=== PATIENT | female | born 1940 | race Caucasian/White ===

== ENCOUNTER → 2023-09-29 09:00 | Outpatient (REF) | payer MEDICARE, OTHER, SELFPAY | LOC: DHSLP 09:00 | PROVIDERS: ATTENDING PHYSICIAN Nurse Practitioner Family; FAMILY PHYSICIAN Family Medicine | DX: G47.33 Obstructive sleep apnea (adult) (pediatric) (principal); R40.0 Somnolence; R06.83 Snoring | CPT/HCPCS: 95800 ==

== ENCOUNTER → 2024-06-13 06:26 | Day surgery (SDC) | payer MEDICARE, OTHER, SELFPAY | LOC: GI 06:26 | PROVIDERS: ATTENDING PHYSICIAN Internal Medicine; FAMILY PHYSICIAN Family Medicine | DX: Z12.11 Encounter for screening for malignant neoplasm of colon (principal); K64.4 Residual hemorrhoidal skin tags; R21 Rash and other nonspecific skin eruption; K62.89 Other specified diseases of anus and rectum; K63.89 Other specified diseases of intestine; K57.30 Diverticulosis of large intestine without perforation or abscess without bleeding; D12.2 Benign neoplasm of ascending colon; D12.3 Benign neoplasm of transverse colon; D12.8 Benign neoplasm of rectum; K62.1 Rectal polyp; Z86.010 Personal history of colon polyps | CPT/HCPCS: 45385; 45380; 88305 ==

== ENCOUNTER 2025-05-27 07:00 | Emergency (ER) | payer MEDICARE, OTHER, SELFPAY ==
[2025-05-27 07:10] VITALS: BP 157/69
--- NOTE | 2025-05-27 07:53 | ED.GENMED ---
History of Present Illness
<Renay Kaiser MD, Resident - Last Filed: 05/27/25 14:26>
General
Chief Complaint: Extremity Pain (non-traumatic)
Source: patient and family (Daughter)
Time Seen by Provider: 05/27/25 07:39
History of Present Illness
History of Present Illness:
Ms. Jacquelin Mcdonald is an 85-year-old female with history of CVA c/b cognitive impairment/short-term memory loss, hyperlipidemia, and hypertension who presents with limited left arm ROM and SOB after a fall on Monday. Of note, she is a poor historian
given her short-term memory loss. She states that she believes it was Monday when she was in the parking lot and fell flat on the ground. She reports that she got herself up and thought nothing of it. However, she has since noticed some short,
bruising over her right breast, and morning was unable to lift her left arm all the way up to get dressed. She reports that she has 3-4/10 pain in her left arm/shoulder, but this mostly the limited ROM that is inhibiting her ADLs. She also reports
some pain in the right arm. She denies hitting her head, loss of consciousness, recent med changes, dizziness, palpitations, or pain elsewhere. Her daughter is at bedside and multiple time reinforces that her mom is not a reliable historian.
Past History
<Renay Kaiser MD, Resident - Last Filed: 05/27/25 14:26>
Past History
ED Past Medical History: CVA, HTN, Hypercholesterolemia and Other ([place]-Call[place] virus diagnosed January 2014)
ED Past Surgical History: None
Social History
Tobacco: Non-smoker
Alcohol: Occasional
Drug: None
Personal:
Living: alone
Employment: Employed
Family History
Family History: Other (reviewed and non-contributory)
Review of Systems
<Renay Kaiser MD, Resident - Last Filed: 05/27/25 14:26>
Review of Systems
Allergies reviewed?: No
All Other Systems: ROS reviewed and negative except as documented in HPI and ROS
Respiratory: Reports trouble breathing
Musculoskeletal: Reports muscle pain (Limited ROM of left shoulder)
Phy Exam
<Renay Kaiser MD, Resident - Last Filed: 05/27/25 14:26>
General Physical Exam
General Presentation: mild distress
General Skin: warm and dry
General Mental: usual mental status (Per daughter)
ENT Exam
ENT Exam: EOMI
Cardiovascular Exam
Cardiovascular Exam: regular rate/rhythm and no edema
Pulmonary Exam
Pulmonary Exam: lungs clear, chest non tender and other (Bruise over right breast)
Gastrointestinal Exam
Gastrointestinal Exam: non tender, soft and non distended
Musculoskeletal Exam
Musculoskeletal Exam: other (Limited ROM of left shoulder, bilateral shoulder pain with left worse than right, bruise over left knee and right breast)
Course
<Renay Kaiser MD, Resident - Last Filed: 05/27/25 14:26>
Orders/Labs/Results
Orders:
Orders
05/27/25 07:13
ECG [Electrocardiogram (*1)] Urgent
Reason for Study: Chest Pain
EKG- Treatment ONCE
05/27/25 08:13
Shoulder, Left 2 View CR [CR Shoulder - Left Min 2 View*] Urgent
Comment:
Reason For Exam: pain, fall, limited ROM
Shoulder, Right 2 Views [CR Shoulder - Right Min 2 View] Urgent
Comment:
Reason For Exam: pain 2/2 fall
05/27/25 08:14
CT Head W/o Iv Contrast Urgent
Comment:
Reason For Exam: fall
05/27/25 08:15
CR Chest Portable - 1 View Urgent
Comment:
Reason For Exam: SOB
Reason Study Needs to be Portable: Other
If Reason is Other, explain: assess for rib fx
05/27/25 08:22
Knee, Left 1 or 2 Views [CR Knee - Left 1 Or 2 Views] Urgent
Comment:
Reason For Exam: fall
Knee, Right 1 or 2 Views [CR Knee - Right 1 Or 2 Views] Urgent
Comment:
Reason For Exam: fall
05/27/25 09:37
Sling Left-Treatment ONCE
Vital Signs
Initial and Last Documented VS:
Initial Vital Signs
Pulse Resp BP Pulse Ox
67 18 157/69 97
05/27/25 07:10 05/27/25 07:10 05/27/25 07:10 05/27/25 07:10
Last Documented Vital Signs
Temp Pulse Resp BP Pulse Ox
97.7 F 56 20 155/55 95
05/27/25 07:12 05/27/25 08:23 05/27/25 08:23 05/27/25 08:23 05/27/25 08:23
<Yousuf Watson, DO - Last Filed: 05/27/25 09:42>
Orders/Labs/Results
Orders:
Orders
05/27/25 07:13
ECG [Electrocardiogram (*1)] Urgent
Reason for Study: Chest Pain
EKG- Treatment ONCE
05/27/25 08:13
Shoulder, Left 2 View CR [CR Shoulder - Left Min 2 View*] Urgent
Comment:
Reason For Exam: pain, fall, limited ROM
Shoulder, Right 2 Views [CR Shoulder - Right Min 2 View] Urgent
Comment:
Reason For Exam: pain 2/2 fall
05/27/25 08:14
CT Head W/o Iv Contrast Urgent
Comment:
Reason For Exam: fall
05/27/25 08:15
CR Chest Portable - 1 View Urgent
Comment:
Reason For Exam: SOB
Reason Study Needs to be Portable: Other
If Reason is Other, explain: assess for rib fx
05/27/25 08:22
Knee, Left 1 or 2 Views [CR Knee - Left 1 Or 2 Views] Urgent
Comment:
Reason For Exam: fall
Knee, Right 1 or 2 Views [CR Knee - Right 1 Or 2 Views] Urgent
Comment:
Reason For Exam: fall
05/27/25 09:37
Sling Left-Treatment ONCE
Vital Signs
Initial and Last Documented VS:
Initial Vital Signs
Pulse Resp BP Pulse Ox
67 18 157/69 97
05/27/25 07:10 05/27/25 07:10 05/27/25 07:10 05/27/25 07:10
Last Documented Vital Signs
Temp Pulse Resp BP Pulse Ox
97.7 F 56 20 155/55 95
05/27/25 07:12 05/27/25 08:23 05/27/25 08:23 05/27/25 08:23 05/27/25 08:23
<Renay Kaiser MD, Resident - Last Filed: 05/27/25 14:26>
MDM/Problems Addressed
Differential Diagnosis Includes:
Shoulder dislocation
Rib/arm/shoulder fracture
MSK sprain
Rotator cuff tear
MDM/Problems Addressed:
Ms. Jacquelin Mcdonald is an 85-year-old female with history of CVA c/b cognitive impairment/short-term memory loss, hyperlipidemia, and hypertension who presents with limited left arm ROM and SOB after a fall on Monday.
#Limited left arm ROM
#SOB
Per patient, this all started after her recent fall, which she believes was on Monday. On physical exam, she has limited ROM of left shoulder (cannot lift her arm all the way up). She also has tenderness to palpation right upper.
- Bilateral shoulder and knee XRs unremarkable
- CXR unremarkable
- Noncontrast Head CT without any acute intracranial abnormality
- Left arm sling for comfort
- Discussed the above with her and recommended outpatient follow-up with orthopedics on-call (Dr. Favio Anna)
<Renay Kaiser MD, Resident - Last Filed: 05/27/25 14:26>
*Pulse Oximetry
SaO2: 97
Oxygen Mode of Delivery: Room air
Patient hypoxic: no
*Critical Care Note
Total Time (30-74mins, 75-104mins- exclusive of procedures): Not Applicable
ED Attending Note
<Renay Kaiser MD, Resident - Last Filed: 05/27/25 14:26>
-
Portions of this chart may have been created with voice recognition software.� Occasional wrong word or��sound alike� substitutions may have occurred due to the inherent limitations of voice recognition software.
<Yousuf Watson, DO - Last Filed: 05/27/25 09:42>
ED Attending Note
Patient seen and examined by attending physician: Yes
I performed a history and physical exam of patient and discussed management with resident, I reviewed resident's note and agree with documented findings and plan of care.: Yes
ED Attending Note:
I have reviewed and agree with history treatment plan by Renay Kaiser MD. My exam revealed 85-year-old female with mild tenderness palpation bilateral shoulders. Full range of motion of bilateral knees. No signs of significant trauma, except
hematoma right breast. No signs of fracture on either shoulder, no knee fractures, no signs of intracranial hemorrhage. Patient stable for discharge and follow-up with orthopedics.
Discharge Plan
Departure
Patient Disposition: Home (Routine Discharge)
Date of Disposition: 05/27/25
Time of Disposition: 09:37
Patient with high blood pressure during this ER visit?: Yes
Condition: Good
Discharge Problem:
Acute pain of left shoulder due to trauma
Instructions: Muscle and Bone Pain (DC)
Prescriptions:
No Action
spironolactone 25 MG tablet
25 mg PO QPM
Refresh Classic (PF) 10 DROPS dropperette
1 drp BOTH EYES BIDPRN PRN (Reason: dry eyes)
PreserVision AREDS 1 CAP capsule
1 cap PO QPM
omega 3-jxi-cov-fish oil [Fish Oil] 1 EACH capsule
1,000 mg PO QPM
aspirin 81 MG tablet,delayed release (DR/EC)
81 mg PO QPM
atorvastatin 40 MG tablet
40 mg PO QPM
fluticasone propionate 1 SPRAY spray,suspension
1 spray intranasal BID Qty: 30 0RF
pantoprazole 40 MG tablet,delayed release (DR/EC)
40 mg PO DAILY Qty: 30 0RF
cyanocobalamin (vitamin B-12) 100 MCG tablet
100 mcg PO DAILY Qty: 30 0RF
Referrals:
Rodrigo Cavazos MD [Family Provider, Family Practice]
Favio Anna MD [Active, Orthopedics] - Call in 1-3 days for appt
Referral Note: Follow-up with orthopedic surgery for further evaluation of your left arm/shoulder pain.
Interventions
Interventions:
*Risk Screen - Suicide Last Done: 05/27/25 07:10
*General Assessment Last Done: 05/27/25 07:10
*Neglect/Abuse Screening Last Done: 05/27/25 08:20
*ED- Fall Risk Assessment Last Done: 05/27/25 08:20
*ED COVID-19 Vaccine History Last Done: 05/27/25 08:20
*Nursing Disposition Last Done: 05/27/25 10:10
ED-Skin Assessment Last Done: 05/27/25 08:20
ED-Peripheral Vascular Assessment Last Done: 05/27/25 08:20
ED-Musculoskeletal Assessment Last Done: 05/27/25 08:20
Discharge Date and Time
Discharge Date/Time: 05/27/25 10:12
Print Language: YORUBA
[2025-05-27 08:19] VITALS: BP 155/55
[2025-05-27 08:20] VITALS: BMI 31.2
[2025-05-27 08:23] VITALS: BP 155/55
== END 2025-05-27 10:12 | disposition home or self-care (01) ==
LOC: EMR 07:00
PROVIDERS: EMERGENCY PHYSICIAN Emergency Medicine; FAMILY PHYSICIAN Family Medicine
DX: S20.01XA Contusion of right breast, initial encounter (principal); S80.02XA Contusion of left knee, initial encounter; M25.512 Pain in left shoulder; W19.XXXA Unspecified fall, initial encounter; E78.00 Pure hypercholesterolemia, unspecified; I10 Essential (primary) hypertension; Z86.73 Personal history of transient ischemic attack (TIA), and cerebral infarction without residual deficits
CPT/HCPCS: 99284; 70450; 71045; 73030; 73560; 93005